=== PATIENT | male | born 1965 | race Hispanic/Latino ===

== ENCOUNTER 2019-07-20 11:58 | Emergency (ER) | payer OTHER ==
[2019-07-20 18:03] LABS: SARS-CoV-2 MS2 Positive; SARS-CoV-2 N Gene Positive; SARS-CoV-2 S Gene Positive; SARS-CoV-2 orf1ab Positive
== END 2019-07-20 12:46 | disposition home or self-care (01) ==
LOC: ERS 11:58
DX: B34.9 Viral infection, unspecified (principal)
CPT/HCPCS: 87635; 99283; U0002

== ENCOUNTER 2021-01-09 08:55 | Outpatient (CLI) | payer OTHER | END 2021-01-09 08:56 | disposition home or self-care (01) | LOC: BICRAD 08:55 | PROVIDERS: ATTEND Nurse Practitioner Family | DX: M25.551 Pain in right hip (principal); M25.552 Pain in left hip; M16.0 Bilateral primary osteoarthritis of hip ==